=== PATIENT | female | born 1985 | race Caucasian/White ===

== ENCOUNTER 2019-07-05 12:46 | Emergency (ER) | payer BC ==
--- NOTE | 2019-07-05 13:25 | ED ---
Psychiatric Complaint - HPI Summary HPI Summary: 34 year old F referred to [facility] by her counselor Ellie accompanied by complains of increasingly severe depression since April 2019. Symptoms aggravated by nothing. Symptoms alleviated by nothing. Patient states she is 24 weeks . Patient states that she had recent medication change. Patient states that before she was , she was taking Klonopin and Lexapro. Patient states that since finding out she is , she weaned off Klonopin and was placed on Prozac. - History Of Current Complaint Chief Complaint: EDMentalHealth Time Seen by Provider: 07/05/19 13:15 Hx Obtained From: Patient Onset/Duration: Lasting Weeks - April 2019, Still Present Timing: Constant Character: Depressed Aggravating Factor(s): Nothing Alleviating Factor(s): Nothing Related History: Positive For: Prior Psychiatric Issues - Allergies/Home Medications Allergies/Adverse Reactions: Allergies Allergy/AdvReac Type Severity Reaction Status Date / Time Penicillins Allergy Hives Verified 07/05/19 12:54 PMH/Surg Hx/FS Hx/Imm Hx Endocrine/Hematology History: Denies: Hx Diabetes, Hx Thyroid Disease Cardiovascular History: Denies: Hx Hypertension Respiratory History: Denies: Hx Asthma, Hx Chronic Obstructive Pulmonary Disease (COPD) GI History: Denies: Hx Ulcer Psychiatric History: Reports: Hx Eating Disorder - HX ANOREXIA NERVOSA, Hx Depression Denies: Hx of Violent Episodes Against Others - Surgical History Surgery Procedure, Year, and Place: wisdom teeth Infectious Disease History: No Infectious Disease History: Denies: Hx Hepatitis, Hx Human Immunodeficiency Virus (HIV), Traveled Outside the [place] in Last 30 Days - Family History Known Family History: Positive: Other - depression, alcohol abuse - Social History Alcohol Use: Rare Hx Substance Use: No Substance Use Type: Reports: None Hx Tobacco Use: Yes Smoking Status (MU): Former Smoker Type: eCigarettes Review of Systems Negative: Fever Positive: Depressed All Other Systems Reviewed And Are Negative: Yes Physical Exam - Summary Physical Exam Summary: Appearance: The patient is well-nourished in no acute distress and in no acute pain. Skin: The skin is warm and dry, and skin color reflects adequate perfusion. HEENT: The head is normocephalic and atraumatic. The pupils are equal and reactive. The conjunctivae are clear and without drainage. Nares are patent and without drainage. Mouth reveals moist mucous membranes, and the throat is without erythema and exudate. The external ears are intact. The ear canals are patent and without drainage. The tympanic membranes are intact. Neck: The neck is supple with full range of motion and non-tender. There are no carotid bruits. There is no neck vein distension. Respiratory: Chest is non-tender. Lungs are clear to auscultation and breath sounds are symmetrical and equal. Cardiovascular: Heart is regular rate and rhythm. There is no murmur or rub auscultated. There is no peripheral edema and pulses are symmetrical and equal. Abdomen: The abdomen is soft and non-tender. There are normal bowel sounds heard in all four quadrants and there is no organomegaly palpated. Musculoskeletal: There is no back tenderness noted. Extremities are non-tender with full range of motion. There is good capillary refill. There is no peripheral edema or calf tenderness elicited. Neurological: Patient is alert and oriented to person, place and time. The patient has symmetrical motor strength in all four extremities. Cranial nerves are grossly intact. Deep tendon reflexes are symmetrical and equal in all four extremities. Psychiatric: The patient has an appropriate affect and does not exhibit any anxiety or depression. Triage Information Reviewed: Yes Vital Signs On Initial Exam: Initial Vitals Temp Pulse Resp BP Pulse Ox 97.8 F 76 20 175/108 100 07/05/19 12:47 07/05/19 12:47 07/05/19 12:47 07/05/19 12:47 07/05/19 12:47 Vital Signs Reviewed: Yes Diagnostics - Vital Signs Vital Signs Temp Pulse Resp BP Pulse Ox 07/05/19 12:47 97.8 F 76 20 175/108 100 - Laboratory Result Diagrams: 07/05/19 13:40 07/05/19 13:40 Lab Statement: Any lab studies that have been ordered have been reviewed, and results considered in the medical decision making process. - Ultrasound Ultrasound Interpretation Completed By: Radiologist Summary of Ultrasound Findings: SINGLE LIVE INTRAUTERINE GESTATION AT 25 WEEKS, 1 DAY BY COMPOSITE GESTATIONAL AGE. ED physician has reviewed this report. Re-Evaluation - Re-Evaluation First Eval Re-Evaluation Time: 15:31 Comment: patient is medically cleared for MHE Course/Dx - Course Course Of Treatment: Ms. Gates was medically cleared in the emergency department. The mental health spray gun sizer saw her and discussed it with Dr. Muller. They determined the patient was stable for discharge and recommended follow-up with her PCP. - Differential Dx/Clinical Impression Provider Diagnosis: Depression - Physician Notifications Discussed Care Of Patient With: Eliot Muller Instructed by Provider To: Other - Dr. Muller recommends discharging patient Discharge ED - Sign-Out/Discharge Documenting (check all that apply): Patient Departure - Discharge Patient Received Moderate/Deep Sedation with Procedure: No - Discharge Plan Condition: Stable Disposition: HOME Patient Education Materials: Mood Disorders (ED), Depression (ED), Anxiety (ED) Referrals: [facility] [Outside] Jacob Moody DO [Primary Care Provider] - - Billing Disposition and Condition Condition: STABLE Disposition: Home - Attestation Statements Document Initiated by Jael: Yes Documenting Scribe: Marycruz Maloney Provider For Whom Tayoe is Documenting (Include Credential): Baljinder Canela MD Scribe Attestation: Marycruz Schaffer, scribed for Baljinder Canela MD on 07/05/19 at 2023. Scribe Documentation Reviewed: Yes Provider Attestation: The documentation as recorded by the Marycruz graf accurately reflects the service I personally performed and the decisions made by , Baljinder Canela MD Status of Scribe Document: Viewed
[2019-07-05 14:05] LABS: ABS Basophils 0.1 10^3/ul (0-0.2); ABS Eosinophils 0.2 10^3/ul (0-0.6); ABS Lymphocytes 1.5 10^3/ul (1.0-4.8); ABS Monocytes 0.5 10^3/ul (0-0.8); ABS Neutrophils 8.4 10^3/ul (1.5-7.7); Eosinophil % 1.8 %; Hematocrit 37 % (35-47); Hemoglobin 12.9 g/dL (12.0-16.0); Lymphocyte % 14.1 %; Mean Corpuscular HGB Conc 35 g/dL (31-36); Mean Corpuscular Hemoglobin 31 pg (27-31); Mean Corpuscular Volume 88 fL (80-97); Mean Platelet Volume 9.1 fL (7.4-10.4); Platelet Count 178 10^3/uL (150-450); Red Blood Count 4.22 10^6 /uL (3.70-4.87); Red Cell Distribution Width 13 % (10-15); White Blood Count 10.7 10^3/uL (3.5-10.8)
[2019-07-05 14:42] LABS: TSH (Thyroid Stimulating Horm) 1.47 mcIU/mL (0.34-5.60)
[2019-07-05 14:48] LABS: ALT 9 U/L (7-52); AST 16 U/L (13-39); Albumin 3.6 g/dL (3.2-5.2); Albumin/Globulin Ratio 1.3 (1-3); Alkaline Phosphatase 67 U/L (34-104); Anion Gap 6 mmol/L (2-11); Blood Urea Nitrogen 12 mg/dL (6-24); CO2 Carbon Dioxide 28 mmol/L (22-32); Calcium 9.2 mg/dL (8.6-10.3); Chloride 102 mmol/L (101-111); EGFR African American 99.4 (>60); EGFR Non-African American 82.1 (>60); Globulin 2.8 g/dL (2-4); Glucose 107 mg/dL (70-100); Potassium 3.9 mmol/L (3.5-5.0); Sodium 136 mmol/L (135-145); Total Protein 6.4 g/dL (6.4-8.9)
[2019-07-05 14:54] LABS: Acetaminophen < 15 mcg/mL; Alcohol < 10 mg/dL (<10); Salicylate < 2.50 mg/dL (<30)
[2019-07-05 16:02] LABS: Urine Appearance Cloudy; Urine Bilirubin Negative (Negative); Urine Blood Negative (Negative); Urine Color Yellow; Urine Glucose Negative (Negative); Urine Ketones Negative (Negative); Urine Nitrite Negative (Negative); Urine Protein Negative (Negative); Urine Specific Gravity 1.016 (1.010-1.030); Urine Urobilinogen Negative (Negative)
[2019-07-05 16:40] LABS: Urine Benzodiazepine Screen None Detected (None Detect); Urine Opiates Screen None Detected (None Detect)
[2019-07-05 18:12] VITALS: BP 119/74
== END 2019-07-05 18:14 | disposition home or self-care (01) ==
LOC: ED 12:46
DX: O99.342 Other mental disorders complicating pregnancy, second trimester (principal); F32.9 Major depressive disorder, single episode, unspecified; Z3A.25 25 weeks gestation of pregnancy; Z88.0 Allergy status to penicillin; Z87.891 Personal history of nicotine dependence; Z79.899 Other long term (current) drug therapy
CPT/HCPCS: 36415; 76815; 80053; 80307; 80320; 80329; 81003; 84443; 85025; 99283; G0480